=== PATIENT | male | born 1965 ===

== ENCOUNTER 2018-04-28 06:16 | Day surgery (SDC) | payer OTHER ==
[2018-04-28] MEDS ORDERED: LIDOCAINE 2% MDV (20MG/ML) 20ML VIAL IV ONE (06:17)
[2018-04-28] MEDS ORDERED: PROPOFOL 10 MG/ML VIAL IV ONE (06:17)
--- NOTE | 2018-04-29 07:21 | Operative Note ---
DATE OF SURGERY: 04/28/2018 OPERATION: COLONOSCOPY with cold forceps polypectomy x2. PREOPERATIVE DIAGNOSIS: Colon cancer screening. POSTOPERATIVE DIAGNOSES: 1. Status post sigmoid resection. 2. Colonic diverticulosis, left-sided greater than right. 3. Diminutive rectal polyps x2, status post cold forceps removal. PREPARATION QUALITY: Good. ESTIMATED BLOOD LOSS: Minimal. SPECIMENS: Rectal polyps. COMPLICATIONS: None apparent. PROCEDURE: After informed consent was obtained from the patient, he was placed in the left lateral decubitus position in the endoscopy suite, sedated and monitored by the department of anesthesia. Digital rectal examination was unremarkable. A well-lubricated [id number] colonoscope was inserted into the rectum and advanced to the cecum and ultimately into the terminal ileum. The terminal ileum, cecum, appendiceal orifice, ascending colon, transverse colon, and descending colon were unremarkable other than a few diverticula seen in the ascending colon as well as the remaining descending colon and sigmoid colon. There was an anastomosis that appeared to be a [id number] anastomosis in the area of the distal sigmoid colon. This appeared healthy and was easily traversed. The rectum was unremarkable in forward but J-turn views did reveal 2 diminutive polyps just proximal to the dentate line approximately 3 cm. Each was removed with a cold forceps. Minimal bleeding was noted at the site. The endoscope was straightened, the rectal ampulla deflated, and the endoscope was removed. RECOMMENDATIONS: I would suggest the patient follow a high-fiber diet and use a fiber supplement. He will require repeat exam in 5-10 years pending tissue histology. As always, thank you for allowing me to participate in the healthcare of your patients. CC: Mariangel Mendez MD [facility]
== END 2018-04-28 08:09 | disposition home or self-care (01) ==
LOC: HOP 06:16
PROVIDERS: ATTEND Internal Medicine Gastroenterology
DX: Z12.11 Encounter for screening for malignant neoplasm of colon (principal); Z90.49 Acquired absence of other specified parts of digestive tract; D12.8 Benign neoplasm of rectum; K57.30 Diverticulosis of large intestine without perforation or abscess without bleeding; I10 Essential (primary) hypertension